=== PATIENT | male | born 1950 | race Caucasian/White ===

== ENCOUNTER 2023-04-17 08:08 | Day surgery (SDC) | payer MEDICARE, OTHER ==
[2023-04-11 12:29] LABS: BASOPHILS # (AUTO) 0.1 X10'3 (0-0.2); EOSINOPHILS # (AUTO) 0.3 X10'3 (0-0.9); HEMATOCRIT 50.7 % (42.0-52.0); HEMOGLOBIN 17.2 g/dl (14.0-17.9); LYMPHOCYTES # (AUTO) 1.6 X10'3 (1.1-4.8); MEAN CORPUSCULAR HEMOGLOBIN 31.3 PG (27.0-31.0); MONOCYTES # (AUTO) 0.6 X10'3 (0-0.9); WHITE BLOOD COUNT 5.6 X10'3 (4.5-11.0)
[2023-04-11 12:31] LABS: BASOPHILS % (AUTO) 1.4 % (0-1); EOSINOPHILS % (AUTO) 5.6 % (0-6); LYMPHOCYTES % (AUTO) 27.9 % (21-51); MEAN CORPUSCULAR HGB CONC 33.9 g/dL (33.0-36.5); MEAN CORPUSCULAR VOLUME 92.3 FL (78-98); MEAN PLATELET VOLUME 8.5 FL (7.4-10.4); MONOCYTES % (AUTO) 10.1 % (2-12); NEUTROPHILS # (AUTO) 3.1 X10'3 (1.8-7.7); PLATELET COUNT 180 X10'3 (140-440); RED BLOOD COUNT 5.49 X10'6 (4.70-6.10); RED CELL DISTRIBUTION WIDTH 13.4 % (11.5-14.5)
[2023-04-11 12:42] LABS: ALANINE AMINOTRANSFERASE 34 U/L (12-78); ALBUMIN 3.5 G/DL (3.4-5.0); ALBUMIN/GLOBULIN RATIO 0.9 (1.1-1.5); ALKALINE PHOSPHATASE 98 IU/L (46-116); ANION GAP 6 (8-16); ASPARTATE AMINO TRANSFERASE 22 U/L (10-37); BILIRUBIN,TOTAL 1.1 MG/DL (0.1-1.0); BLOOD UREA NITROGEN 9 MG/DL (7-18); BUN/CREATININE RATIO 8.8 (10.0-20.0); CALCIUM 9.3 MG/DL (8.5-10.1); CHLORIDE 107 MMOL/L (99-107); CREATININE 1.02 MG/DL (0.60-1.10); GLUCOSE 87 MG/DL (70-104); SODIUM 142 MMOL/L (135-145); TOTAL CARBON DIOXIDE 29.4 MMOL/L (24-32); TOTAL PROTEIN 7.2 G/DL (6.4-8.2); eGFR 71 ML/MIN
[~2023-04-17] VITALS: Ht 172.7 cm; Wt 74.8 kg
[2023-04-17] VITALS (20 sets, daily range): BP systolic 130–198; BP diastolic 68–110; PULSE 56–89; RESP 9–20; TEMP 97.4; O2SAT 91–99
[~2023-04-17 08:08] MED LIST: cefazolin 2gm/D5W 100mL 100 ML IV ONE; famotidine 20mg tablet PO ONE; ringers solution, lacted 1,000 ML IV SCH
[2023-04-17] MEDS ORDERED: BUPIVAcaine/PF 2.5mg/ml (0.25%) 10ml vial ONE (12:33)
[2023-04-17] MEDS ORDERED: sevoflurane 250ml liquid IH ONE (12:45)
[2023-04-17] MEDS ORDERED: fentaNYL/PF 50MCG/1 ML 2ML syringe ONE (12:53)
[2023-04-17] MEDS ORDERED: HYDROmorphone/PF 0.2 MG/ML SYRINGE IV PRN (13:05)
[2023-04-17] MEDS ORDERED: ondansetron/PF 4mg/2ml inj IV PRN (13:05)
[2023-04-17] MEDS ORDERED: ringers solution, lacted 1,000 ML IV SCH (13:05)
[2023-04-17] MEDS ORDERED: morphine 2 MG/ML inj. syringe IV PRN (13:05)
[2023-04-17] MEDS ORDERED: propofol inj 20 ML IV ONE (13:41)
[2023-04-17] MEDS ORDERED: ondansetron/PF 4mg/2ml inj ONE (13:41)
[2023-04-17] MEDS ORDERED: LIDOcaine 2% (20mg/ml) 5ml vial ONE (13:41)
[2023-04-17] MEDS ORDERED: labetalol 20mg/4ml (5mg/ml) syringe IV ONE (13:41)
[2023-04-17] MEDS ORDERED: rocuronium 10mg/ml inj IV ONE (13:41)
[2023-04-17] MEDS ORDERED: dexamethasone sod phosphate 4mg/ml inj. ONE (13:41)
[2023-04-17] MEDS ORDERED: glycopyrrolate 0.2mg/ml inj ONE (14:45)
[2023-04-17] MEDS ORDERED: neostigmine methylsulfate 1 MG/ML 10ml vial ONE (14:45)
--- NOTE | 2023-04-17 15:20 | NUR ---
[facility], accompanied by Anesthesiologist DR BAUTISTA and report given by Anesthesiologist. PT GROGGY BUT RESPONDS TO VERBAL STIMULI. PT PLACED ON BEDSIDE MONITOR, PT IS HYPERTENSIVE. LABETALOL GIVEN PER ANESTHESIA. PT IS RECEIVING 8L O1 TO MASK AND TOLERATING WELL WITH O2 SAT >95%. WILL TITRATE DOWN PT TOLERATES. PT HAS 2OG PIV TO LEFT HAND WITH LR INFUSING ORDERED. PT HAS BAND-AID X3 TO ABD THAT ARE ALL CDI. PT DENIES PAIN AT THIS TIME. WILL CONTINUE TO ASSESS
[2023-04-17] MEDS: HYDROmorphone/PF 0.2 MG/ML SYRINGE IV PRN ×3 (15:26→16:01)
[2023-04-17] MEDS ORDERED: HYDROcodone/acetaminophen 10/325mg tab PO ONE (15:50)
--- NOTE | 2023-04-17 18:55 | NUR ---
PT TAKEN OFF MONITOR TO GET DRESSED AND WALK AROUND SO HE CAN MAKE ATTEMPT TO VOID
--- NOTE | 2023-04-17 19:30 | NUR ---
PT VOIDED 75ML, POST VOID RESIDUAL BLADDER SCAN PERFORMED AND YIELDED 33ML. PT EDUCATED FOR NEED TO ATTEMPT TO URINATE FREQUENTLY AND TO RETURN TO ER IF UNABLE TO VOID. PT STATES UNDERSTANDING.
--- NOTE | 2023-04-17 20:13 | NUR ---
DC HOME: ALL DISCHARGE CRITERIA HAS BEEN MET. VSS, PAIN AT TOLERABLE LEVEL. ABLE TO SAFELY AMBULATE AND TRANSFER SELF AND VOIDING. IV TAKEN OUT WITHOUT ANY COMPLICATIONS. ALL DISCHARGE INSTRUCTIONS COVERED WITH PATIENT AND ALL QUESTIONS ANSWERED. PATIENT TAKEN OUT VIA WHEELCHAIR TO PERSONAL VEHICLE WHERE DROVE PATIENT HOME.
== END 2023-04-17 20:05 | disposition home or self-care (01) ==
LOC: PRE-OP 08:08
PROVIDERS: ATTEND Surgery
DX: K40.91 Unilateral inguinal hernia, without obstruction or gangrene, recurrent (principal); Z79.899 Other long term (current) drug therapy; Z82.49 Family history of ischemic heart disease and other diseases of the circulatory system; Z98.890 Other specified postprocedural states
CPT/HCPCS: 49651; 80053; 82948; 85025; C1781; J0690; J1100; J1170; J2270; J2405; J2704; J2710; J3010; J3490; J7030; J7120; Z7506; Z7508; Z7512; A4215; A4618; C1758